=== PATIENT | male | born 1995 | race Caucasian/White ===

== ENCOUNTER 2018-03-20 22:45 | Emergency (ER) | payer SELFPAY ==
[~2018-03-20] VITALS: Ht 165.1 cm; Wt 60.0 kg
[2018-03-21 02:37] VITALS: BP 126/81
== END 2018-03-21 02:41 | disposition home or self-care (01) ==
LOC: EMS 22:46
DX: R00.2 Palpitations (principal)
CPT/HCPCS: 93005; 99284